=== PATIENT | female | born 1950 | race Caucasian/White ===

== ENCOUNTER → 2024-01-09 14:50 | Outpatient (REF) | payer MEDICARE, BC, SELFPAY | LOC: REG 14:50 | PROVIDERS: ATTENDING PHYSICIAN Internal Medicine | DX: R19.7 Diarrhea, unspecified (principal) | CPT/HCPCS: 87045; 87046; 87328; 87329; 87427; 89055 ==

== ENCOUNTER → 2025-03-17 08:31 | Outpatient (REF) | payer MEDICARE, BC, SELFPAY | LOC: WDC 08:31 | PROVIDERS: ATTENDING PHYSICIAN Internal Medicine | DX: Z12.31 Encounter for screening mammogram for malignant neoplasm of breast (principal) | CPT/HCPCS: 77063; 77067 ==

== ENCOUNTER 2025-11-01 15:14 | Emergency (ER) | payer MEDICARE, BC, SELFPAY ==
[2025-11-01 15:18] VITALS: BP 106/69
[2025-11-01 15:28] VITALS: BMI 28.2
--- NOTE | 2025-11-01 15:37 | ED.GENMED ---
History of Present Illness
General
Chief Complaint: Musculo-Skeletal Complaint
Source: patient
Exam Limitations: none
Time Seen by Provider: 11/01/25 15:20
Nursing documentation reviewed up to this point in time: agreed with
History of Present Illness
History of Present Illness:
Patient is a 75-year-old female who was standing on a stepladder fell back landing on her 2 feet. She reports she did not fall but since then complains of pain in her posterior left leg. She is able to bear weight with discomfort. She reports
walking up steps worsens pain. She has not taken anything for pain. She denies any neck or back pain.
Past History
Social History
Tobacco: Non-smoker
Employment: Employed
Phy Exam
General Physical Exam
General Presentation: no apparent distress
General age: appears stated age
General Skin: warm and dry
General Habitus: normal
General Mental: alert
General Hydration: appears well hydrated
Neurological Exam
Neurological Exam: alert and oriented x3
Musculoskeletal Exam
Musculoskeletal Exam: other (No deformity to left lower extremity strong pulses ;mild discomfort with external rotation of the left hip however no bony tenderness to hip or femur. No bony tenderness to lumbar spine. Patient has pain with li no
deformity to left lower extremity strong pulses fting leg office )
Skin Exam
Skin Exam: normal color and warm/dry
Psychiatric Exam
Psychiatric Exam: normal mood/affect
Course
Orders/Labs/Results
Orders:
Orders
11/01/25 15:37
Ibuprofen [Motrin] 600 mg PO NOW STA
CR Pelvis - 1 Or 2 Views Urgent
Reason For Exam: trauma
Femur, Left 2 View [CR Femur - Left Min 2 Vw] Urgent
Comment:
Reason For Exam: trauma
Lumbar Spine Complete, 4 View [CR Lumbar Spine Comp Min 4 Vw*] Urgent
Comment:
Reason For Exam: trauma
Vital Signs
Initial and Last Documented VS:
Initial Vital Signs
Temp Pulse Resp BP Pulse Ox
98.1 F 74 20 106/69 98
11/01/25 15:18 11/01/25 15:18 11/01/25 15:18 11/01/25 15:18 11/01/25 15:18
Last Documented Vital Signs
Temp Pulse Resp BP Pulse Ox
98.1 F 74 20 106/69 98
11/01/25 15:18 11/01/25 15:18 11/01/25 15:18 11/01/25 15:18 11/01/25 15:37
MDM/Problems Addressed
MDM/Problems Addressed:
Patient did not actually fall. Patient slid off the ladder and landed on her feet. She denies any actual back pain. She denies any numbness Tingling to legs. symtpoms are likely consistent with likely hamstring strain versus
inflammation/radicular pain. Patient is able to bear weight symptoms have improved with ibuprofen she does not describe pain in the hip area at this time is more in the posterior lateral thigh. There is no obvious swelling. Degenerative changes
on x-rays but no acute fractures. Will DC with ibuprofen Tylenol ice and close outpatient family we will hold off on any additional imaging as patient feeling much better with ibuprofen able to bear weight no acute distress.
*Radiology
Radiology exam reviewed: radiology read reviewed
*Pulse Oximetry
SaO2: 98
Oxygen Mode of Delivery: Room air
Patient hypoxic: no
*Critical Care Note
Total Time (30-74mins, 75-104mins- exclusive of procedures): Not Applicable
ED Attending Note
-
Portions of this chart may have been created with voice recognition software.� Occasional wrong word or��sound alike� substitutions may have occurred due to the inherent limitations of voice recognition software.
Discharge Plan
Departure
Patient Disposition: Home (Routine Discharge)
Date of Disposition: 11/01/25
Time of Disposition: 18:23
Patient with high blood pressure during this ER visit?: No
Condition: Fair
Covid-19: Not Applicable
Discharge Problem:
leg pain
Instructions: Ibuprofen
Referrals:
UNKNOWN - PT DOES,NOT KNOW [Unknown Provider]
Activity Restrictions/Additional Instructions:
As discussed symptoms are likely muscle strain versus inflamed radicular pain. Ibuprofen every 8 hours with food alternating with Tylenol. Ice the affected area within the next 24 hours 20 minutes at a time several times a day. Follow-up with
family doctor Monday or Monday return if any worsening of symptoms.
Interventions
Interventions:
*Risk Screen - Suicide Last Done: 11/01/25 15:28
*General Assessment Last Done: 11/01/25 15:18
*Neglect/Abuse Screening Last Done: 11/01/25 15:28
*ED COVID-19 Vaccine History Last Done: 11/01/25 15:28
*ED Influenza Vaccine History Last Done: 11/01/25 15:28
[facility] Fall Risk Assessment Tool Last Done: 11/01/25 15:28
*Nursing Disposition Last Done: 11/01/25 18:36
ED-Musculoskeletal Assessment Last Done: 11/01/25 15:27
Discharge Date and Time
Discharge Date/Time: 11/01/25 18:36
Print Language: TELUGU
[2025-11-01] MEDS: MOTRIN 600 MG PO (15:45)
== END 2025-11-01 18:36 | disposition home or self-care (01) ==
LOC: EMR 15:14
PROVIDERS: EMERGENCY PHYSICIAN Student in an Organized Health Care Education/Training Program; FAMILY PHYSICIAN Internal Medicine
DX: M79.605 Pain in left leg (principal)
CPT/HCPCS: 99284; 72110; 72170; 73552